=== PATIENT | male | born 1980 | race African-American/Black ===

== ENCOUNTER 2019-05-15 10:03 | Emergency (ER) | payer SELFPAY ==
[~2019-05-15] VITALS: Ht 182.9 cm; Wt 93.4 kg
[2019-05-15 10:30] VITALS: BP 140/91
== END 2019-05-15 11:48 | disposition home or self-care (01) ==
LOC: ER 10:03
DX: R68.84 Jaw pain (principal); R51 Headache; F17.210 Nicotine dependence, cigarettes, uncomplicated